=== PATIENT | male | born 1950 | race Caucasian/White ===

== ENCOUNTER → 2023-03-20 15:19 | Outpatient (CLI) | payer MEDICARE, SELFPAY ==
--- NOTE | 2023-03-20 15:27 | DI.NM.S_ITS ---
PROCEDURE: NM EXERCISE TREADMILL NON NUC COMPARISON: None. INDICATIONS: CHEST PAIN FINDINGS: Rest ECG sinus rhythm, occasional PVCs. Waldo protocol 7:41, maximum heart rate 155 bpm (104% peak predicted), maximum blood pressure 188/92, 10.1 METS, [place] -12%. Exercise ECG sinus tachycardia, no ST segment changes, occasional PVCs. The patient did not complain of exercise-induced chest discomfort. IMPRESSION: Low risk study. No evidence of exercise-induced ischemia. Occasional PVCs noted at rest and throughout exercise. Normal hemodynamic response. Good exercise capacity. Dictated by: Michelle Pereira D.O. on 03/20/2023 at 16:15 Approved by: Michelle Pereira D.O. on 03/20/2023 at 16:18
== END ==
LOC: DI 15:27
PROVIDERS: Family Provider Family Medicine Geriatric Medicine; PCP Student in an Organized Health Care Education/Training Program; Referring Provider Student in an Organized Health Care Education/Training Program; Visit Provider Student in an Organized Health Care Education/Training Program
DX: R07.89 Other chest pain (principal)
CPT/HCPCS: 93017